=== PATIENT | female | born 1955 | race African-American/Black ===

== ENCOUNTER 2019-05-17 09:36 | Emergency (ER) | payer SELFPAY ==
[2019-05-17 09:42] VITALS: BP 145/91; PULSE 99; TEMP 98.4; BMI 29.5
--- NOTE | 2019-05-17 10:19 | PDOC ---
History of Present Illness - General Chief Complaint: Cold Symptoms Stated Complaint: POSSIBLE SINUS INFECTION Time Seen by Provider: 05/17/19 09:58 History Source: Patient Exam Limitations: No Limitations - History of Present Illness Initial Comments: 05/17/19 12:45 She states is here for work from [place], but suffers from seasonal ALLERGIES terribly. has been using Flonase and Claritin regularly but does not feel is improving. was treated for a bronchitis approximately one month ago with steroids and a Z-Fernie and mildly improved and wondered/ worried she may have pneumonia. Patient denies fever, denies any cough with phlegm production, has copious postnasal drainage that is nonpurulent. Timing/Duration: reports: constant, intermittent Severity: reports: mild, moderate Associated Symptoms: reports: cough, nasal congestion, nasal drainage, sore throat. denies: facial pain, fever/chills Past History - Travel Traveled outside of the country in the last 30 days: No Close contact w/someone who was outside of country & ill: No (course in the morning) - Past Medical History Allergies/Adverse Reactions: Allergies Allergy/AdvReac Type Severity Reaction Status Date / Time sulfamethoxazole Allergy Verified 05/17/19 09:42 [From Bactrim] trimethoprim [From Bactrim] Allergy Verified 05/17/19 09:42 Home Medications: Ambulatory Orders Benzonatate [Tessalon Pearls -] 100 mg PO TID #20 capsule 05/17/19 Cetirizine HCl [All Day Allergy] 10 mg PO DAILY #30 capsule 05/17/19 Losartan Potassium [Cozaar -] 50 mg PO DAILY 05/17/19 COPD: No HTN: Yes - Suicide/Smoking/Psychosocial Hx Smoking History: Never smoked Review of Systems - Review of Systems Able to Perform ROS?: Yes Is the patient limited Occitan proficient: Yes Constitutional: Yes: Symptoms Reported, See HPI, Malaise. No: Fever HEENTM: Yes: Symptoms Reported, See HPI, Nose Congestion, Throat Pain Respiratory: Yes: Symptoms reported, See HPI, Cough. No: Shortness of Breath, Wheezing Musculoskeletal: Yes: Symptoms Reported All Other Systems: Reviewed and Negative *Physical Exam - Vital Signs Last Vital Signs Temp Pulse Resp BP Pulse Ox 98.4 F 99 H 18 145/91 99 05/17/19 09:39 05/17/19 09:39 05/17/19 09:39 05/17/19 09:39 05/17/19 09:39 - Physical Exam General Appearance: Yes: Nourished, Appropriately Dressed, Apparent Distress, Moderate Distress HEENT: positive: MARBELLA, Normal ENT Inspection, TMs Normal, Pharynx Normal Neck: positive: Supple. negative: Tender, Lymphadenopathy (R), Lymphadenopathy (L) Respiratory/Chest: positive: Lungs Clear, Normal Breath Sounds Integumentary: positive: Normal Color, Dry. negative: Swelling, Ecchymosis Neurologic: positive: firer powerhouse II-XII NML intact, Fully Oriented, Alert, Normal Mood/ Affect, Normal Response Progress Note - Progress Note Progress Note: ALLERGIC rhinitis, we'll treat with Tessalon Perles as expectorant and cough suppressant, have continue antihistamines and Flonase nasal spray. Recommended follow-up with allergen to test for specific testing and possible ALLERGY shots *DC/Admit/Observation/Transfer Diagnosis at time of Disposition: Allergic rhinitis Qualifiers: Allergic rhinitis trigger: unspecified Allergic rhinitis seasonality: seasonal Qualified Code(s): J30.2 - Other seasonal allergic rhinitis - Discharge Dispostion Disposition: HOME Condition at time of disposition: Stable Decision to Admit order: No - Prescriptions Prescriptions: Benzonatate [Tessalon Pearls -] 100 mg PO TID #20 capsule Cetirizine HCl [All Day Allergy] 10 mg PO DAILY #30 capsule - Referrals Referrals: Dg Abreu MD [Staff Physician] - - Patient Instructions Printed Discharge Instructions: DI for Allergic Rhinitis Additional Instructions: Rest, drink lots of fluids: Teas, water, soups Saltwater gargles. Consider humidifier in room at night Steamy showers/seem to face break up mucus Avoid contact with allergens, exposure to pollens, close windows on a windy day Lots of handwashing and good hygiene Continue [id number] medications for symptomatic relief- may use allergic eyedrops for itching I Continue antihistamines daily until pollen season is over; Zyrtec, Claritin, Tarsha during the daytime and Benadryl at nighttime as will make sleepy Flonase 1 puff each nostril twice a day Tylenol or Motrin for fever and pain Tessalon perles one or 2 tablets of 100 mg every 8 hours as needed for cough Followup with private physician in one to 2 days as needed Consider following up with an supervisor phosphoric acid/lead generation representative for skin testing and possible allergy shots Return to emergency department for worsened symptoms, fevers, dehydration - Post Discharge Activity
== END 2019-05-17 10:20 | disposition home or self-care (01) ==
LOC: JERFT 09:36
DX: J30.2 Other seasonal allergic rhinitis (principal)
CPT/HCPCS: 99281-25